=== PATIENT | female | born 1990 ===

== ENCOUNTER 2016-11-11 02:20 | Emergency (ER) | payer SELFPAY ==
[2016-11-11 02:42] VITALS: BP 118/83
== END 2016-11-11 07:20 | disposition left against medical advice (07) ==
LOC: ED 02:20
DX: S05.92XA Unspecified injury of left eye and orbit, initial encounter (principal); X58.XXXA Exposure to other specified factors, initial encounter; Y93.89 Activity, other specified; Y99.9 Unspecified external cause status; Y92.89 Other specified places as the place of occurrence of the external cause; Z53.21 Procedure and treatment not carried out due to patient leaving prior to being seen by health care provider